=== PATIENT | female | born 1980 | race Caucasian/White ===

== ENCOUNTER 2018-04-20 05:07 | Day surgery (SDC) | payer BC ==
[~2018-04-20] VITALS: Ht 182.9 cm; Wt 99.4 kg
[~2018-04-20 05:07] MED LIST: IBUP-1222 PO; OXYC-302 PO; PREN1TAB56 PO; VALA10004 PO
[2018-04-20] MEDS ORDERED: LIDOCAINE-MPF 1%, 2ML ONE (05:49)
[2018-04-20 06:00] LABS: HCG UR SG > 1.030 (1.003-1.030)
[2018-04-20] MEDS ORDERED: LACTATED RINGERS 1,000 ML IV SCH (06:01)
[2018-04-20] MEDS ORDERED: IBUPROFEN PO (06:03)
[2018-04-20] MEDS ORDERED: MULT-658 PO (06:03)
[2018-04-20] MEDS ORDERED: LIDOCAINE/PF 0.5% ,50ML ONE (06:04)
[2018-04-20] MEDS ORDERED: ROPIvacaine/PF 0.5%, 30 ML ONE (06:04)
[2018-04-20] MEDS ORDERED: EPINEPHRINE 1 MG/ML, 1ML ONE (06:05)
[2018-04-20 06:07] VITALS: BP 110/74
[2018-04-20] MEDS ORDERED: LIDOCAINE-MPF 1%, 2ML INFIL ONE (06:30)
[2018-04-20] MEDS ORDERED: FENTANYL PF 100 MCG/2ML ONE (06:56)
[2018-04-20] MEDS ORDERED: MIDAZOLAM 1 MG/ML, 2ML ONE (06:57)
[2018-04-20] MEDS ORDERED: OXYcodone IR 5MG TABLET PO ONE (07:00)
[2018-04-20] MEDS ORDERED: GABAPENTIN 300 MG CAPSULE PO ONE (07:00)
[2018-04-20] MEDS ORDERED: FAMOTIDINE 20 MG TABLET PO ONE (07:00)
[2018-04-20] MEDS ORDERED: ONDANSETRON ODT 8 MG PO ONE (07:00)
[2018-04-20] MEDS ORDERED: ACETAMINOPHEN 500 MG TABLET PO ONE (07:00)
[2018-04-20] MEDS ORDERED: SCOPOLAMINE PATCH, 1.5MG PATCH.TD72 TD ONE (07:00)
[2018-04-20] MEDS ORDERED: DEXAMETHASONE 4 MG/ML, 1ML ONE (07:05)
[2018-04-20] MEDS ORDERED: PROPOFOL 10 MG/ML, 20ML ONE (07:05)
[2018-04-20] MEDS ORDERED: CEFAZOLIN 1,000 MG ONE (07:05)
[2018-04-20] MEDS ORDERED: KETOROLAC 30 MG/1 ML ONE (07:05)
[2018-04-20] MEDS ORDERED: MEPERIDINE/PF 25MG/0.5ML ONE (07:57)
[2018-04-20] MEDS ORDERED: MIDAZOLAM 1 MG/ML, 2ML IV PRN (08:00)
[2018-04-20] MEDS ORDERED: MEPERIDINE/PF 25MG/0.5ML IVPush PRN (08:00)
[2018-04-20] MEDS ORDERED: ALBUTEROL SULFATE 2.5 MG/3 ML NPPB PRN (08:00)
[2018-04-20] MEDS ORDERED: OXYcodone 5 MG/5 ML ORAL.SOL UDC PO PRN (08:00)
[2018-04-20] MEDS ORDERED: FENTANYL PF 100 MCG/2ML IV PRN (08:00)
[2018-04-20] MEDS ORDERED: hydrALAzine 20 MG/ML, 1ML IV PRN (08:00)
[2018-04-20] MEDS ORDERED: ONDANSETRON ODT 8 MG PO PRN (08:00)
[2018-04-20] MEDS ORDERED: PROMETHAZINE 25 MG/ML, 1ML IV PRN (08:00)
[2018-04-20] MEDS ORDERED: LABETALOL 5MG/ML, 20ML IV PRN (08:00)
[2018-04-20] MEDS ORDERED: EPHEDRINE 50 MG/ML, 1ML IVPush PRN (08:00)
[2018-04-20] MEDS ORDERED: ALBUTEROL/IPRATROPIUM 2.5MG/0.5MG, 3 ML NPPB PRN (08:00)
[2018-04-20] MEDS ORDERED: HYDROmorphone 1 MG/ML, 1ML IV PRN (08:00)
== END 2018-04-20 09:45 ==
LOC: OUT 05:07
PROVIDERS: ATTEND Orthopaedic Surgery
DX: S83.252A Bucket-handle tear of lateral meniscus, current injury, left knee, initial encounter (principal); Z88.5 Allergy status to narcotic agent; X58.XXXA Exposure to other specified factors, initial encounter; Y93.89 Activity, other specified; Y92.89 Other specified places as the place of occurrence of the external cause; Y99.8 Other external cause status; Z72.89 Other problems related to lifestyle
CPT/HCPCS: 29881; 81025; J0171; J0690; J1100; J1885; J2001; J2175; J2250; J2704; J2795; J3010; J3490; J7120; Q0162